=== PATIENT | female | born 1950 | race Caucasian/White ===

== ENCOUNTER → 2021-03-12 | Outpatient (CLI) | payer MEDICARE ==
[~2021-03-12] MED LIST: DILTIAZEM 24HR120 M1 PO; ELIQUIS5 MG PO; FAMOTIDINE20 MG PO; GABAPENTIN300 MG PO; HYDROCODON-ACE1 EAC2 PO; ISOSORBIDE MONO30 MG PO; METOPROLOL SUC100 MG PO; PROTONIX 40 MG40 M1 PO; SERTRALINE HCL50 MG PO; VOLTAREN ARTHRI20 GM TP
== END ==
LOC: HEART 5 10:49
DX: I48.91 Unspecified atrial fibrillation (principal); I08.1 Rheumatic disorders of both mitral and tricuspid valves; I27.20 Pulmonary hypertension, unspecified
CPT/HCPCS: 93306

== ENCOUNTER → 2021-04-06 | Day surgery (SDC) | payer MEDICARE ==
[~2021-04-06] VITALS: Ht 162.6 cm; Wt 73.9 kg
== END | disposition home or self-care (01) ==
LOC: CATH 07:17
DX: Q21.1 Atrial septal defect (principal); I48.91 Unspecified atrial fibrillation; Z95.818 Presence of other cardiac implants and grafts; I11.9 Hypertensive heart disease without heart failure; I08.1 Rheumatic disorders of both mitral and tricuspid valves; J98.4 Other disorders of lung; I27.20 Pulmonary hypertension, unspecified; I25.10 Atherosclerotic heart disease of native coronary artery without angina pectoris; I25.2 Old myocardial infarction; J30.9 Allergic rhinitis, unspecified; H26.9 Unspecified cataract; Z79.01 Long term (current) use of anticoagulants; Z79.899 Other long term (current) drug therapy; Z88.1 Allergy status to other antibiotic agents; Z20.822 Contact with and (suspected) exposure to COVID-19; Z98.61 Coronary angioplasty status; Z87.891 Personal history of nicotine dependence
CPT/HCPCS: 93005; 93312; 93320; J2250; J2310; J3010; J7030; U0002

== ENCOUNTER → 2022-01-12 | Outpatient (CLI) | payer MEDICARE ==
[~2022-01-12] MED LIST changes: +DIAZEPAM5 MG PO; +MOBIC7.5 MG PO; +MULTAQ 400 MG400 MG PO; +NITROSTAT0.4 MG SL; +PRAMIPEXOLE DI0.5 MG PO; +ROPINIROLE HCL0.5 MG PO
[2022-01-12 09:21] LABS: HEMOGLOBIN 9.9 gm/dl (12.3-15.3); RED BLOOD COUNT 3.32 M/UL (4.00-5.10); WHITE BLOOD COUNT 7.7 K/UL (4.5-11.0)
== END ==
LOC: CATH 07:30
PROVIDERS: Internal Medicine Cardiovascular Disease
DX: I48.19 Other persistent atrial fibrillation (principal); I10 Essential (primary) hypertension; I25.10 Atherosclerotic heart disease of native coronary artery without angina pectoris; I25.2 Old myocardial infarction; Q21.1 Atrial septal defect; M19.90 Unspecified osteoarthritis, unspecified site; K21.9 Gastro-esophageal reflux disease without esophagitis; Z20.822 Contact with and (suspected) exposure to COVID-19; Z88.1 Allergy status to other antibiotic agents; Z88.0 Allergy status to penicillin; Z79.01 Long term (current) use of anticoagulants; Z87.891 Personal history of nicotine dependence; Z95.5 Presence of coronary angioplasty implant and graft; Z86.16 Personal history of COVID-19
CPT/HCPCS: 36415; 80048; 85027; 92960; 93005; J1200; J1742; J2250; J2310; J3010

== ENCOUNTER → 2022-03-25 | Outpatient (CLI) | payer MEDICARE | LOC: HEART 5 03-23 09:00 | DX: I20.9 Angina pectoris, unspecified (principal); I10 Essential (primary) hypertension; R06.02 Shortness of breath; I27.20 Pulmonary hypertension, unspecified; I08.1 Rheumatic disorders of both mitral and tricuspid valves | CPT/HCPCS: 78452; A9502; J2785 ==

== ENCOUNTER → 2022-04-21 | Outpatient (CLI) | payer MEDICARE ==
[2022-04-21 15:30] LABS: HEMOGLOBIN 8.6 gm/dl (12.3-15.3); RED BLOOD COUNT 3.27 M/UL (4.00-5.10); WHITE BLOOD COUNT 4.3 K/UL (4.5-11.0)
== END ==
LOC: RAD 15:04
PROVIDERS: Internal Medicine Cardiovascular Disease
DX: R94.39 Abnormal result of other cardiovascular function study (principal); I20.9 Angina pectoris, unspecified; I25.10 Atherosclerotic heart disease of native coronary artery without angina pectoris; R06.02 Shortness of breath
CPT/HCPCS: 36415; 71046; 80048; 85025

== ENCOUNTER → 2022-04-23 | Outpatient (CLI) | payer MEDICARE | LOC: CATH 09:45 | DX: I25.118 Atherosclerotic heart disease of native coronary artery with other forms of angina pectoris (principal); T82.855A Stenosis of coronary artery stent, initial encounter; Y71.2 Prosthetic and other implants, materials and accessory cardiovascular devices associated with adverse incidents; Y83.8 Other surgical procedures as the cause of abnormal reaction of the patient, or of later complication, without mention of misadventure at the time of the procedure; I34.0 Nonrheumatic mitral (valve) insufficiency; I27.20 Pulmonary hypertension, unspecified; I48.19 Other persistent atrial fibrillation; I11.0 Hypertensive heart disease with heart failure; I50.42 Chronic combined systolic (congestive) and diastolic (congestive) heart failure; I25.2 Old myocardial infarction; M19.90 Unspecified osteoarthritis, unspecified site; K21.9 Gastro-esophageal reflux disease without esophagitis; Z87.891 Personal history of nicotine dependence; Z88.1 Allergy status to other antibiotic agents; Z88.0 Allergy status to penicillin; Z79.01 Long term (current) use of anticoagulants; Z79.82 Long term (current) use of aspirin; Z86.16 Personal history of COVID-19 | CPT/HCPCS: 99152; 99153; C1751; C1760; C1769; J0153; J0461; J1644; J2250; J3010; Q9965 ==